=== PATIENT | female | born 1985 | race Caucasian/White ===

== ENCOUNTER 2017-08-20 05:02 | Emergency (ER) | payer MEDICAID ==
[~2017-08-20] VITALS: Ht 152.4 cm; Wt 65.0 kg
[~2017-08-20 05:02] MED LIST: IBUP800T23 PO
[2017-08-20 05:06] VITALS: BP 95/61; PULSE 84; RESP 16; TEMP 98.1; O2SAT 99
[2017-08-20 05:19] VITALS: BP 95/61; PULSE 84; RESP 16; TEMP 98.1; O2SAT 99
[2017-08-20] MEDS ORDERED: ORPHENADRINE INJ 60 MG/2 ML AMP IM ONE (05:45)
[2017-08-20] MEDS ORDERED: ACETAMINOPHEN/HYDROcodone 325 MG/5 MG TAB PO ONE (05:45)
[2017-08-20] MEDS ORDERED: IBUP-232 PO (05:46)
[2017-08-20] MEDS ORDERED: CYCL10TA PO (05:46)
--- NOTE | 2017-08-20 05:47 | PD ---
HPI Chief Complaint: Musculoskeletal Complaint Time Seen by Provider: 05:29 Travel History International Travel<30 days: No Contact w/Intl Traveler<30days: No Traveled to known affect area: No History of Present Illness HPI Patient is a 31-year-old female presents with gradual onset low back pain radiating down her left leg for the past 12-24 hours. Patient states she was doing some garden work yesterday did not feel any pops in her back nor sudden onset symptoms. She denies any saddle anesthesia denies any difficulty urinating. She adamantly denies any IV drug abuse. She states the pain is severe and she's never had this before. States she is otherwise healthy no medical problems. PFSH Past Medical History Diminished Hearing: No Immunizations Current: Yes Influenza Vaccination: No ?: Not LMP: 07/27/17 : 2 Para: 2 Past Surgical History Cholecystectomy: Yes Social History Alcohol Use: No Tobacco Use: Yes (1/2) Substance Use: No Allergies-Medications (Allergen,Severity, Reaction): Coded Allergies: No Known Allergies (Verified Adverse Reaction, Unknown, 08/20/17) Reported Meds & Prescriptions Reported Meds & Active Scripts Active Flexeril (Cyclobenzaprine HCl) 10 Mg Tab 10 Mg PO TID Ibuprofen 600 Mg Tab 600 Mg PO Q6H PRN Review of Systems Except as stated in HPI: all other systems reviewed are Neg Physical Exam Narrative GENERAL: Well-developed well-nourished, appears somewhat uncomfortable. SKIN: Focused skin assessment warm/dry. HEAD: Atraumatic. Normocephalic. EYES: Pupils equal and round. No scleral icterus. No injection or drainage. ENT: No nasal bleeding or discharge. Mucous membranes pink and moist. NECK: Trachea midline. No JVD. CARDIOVASCULAR: Regular rate and rhythm. No murmur appreciated. RESPIRATORY: No accessory muscle use. Clear to auscultation. Breath sounds equal bilaterally. GASTROINTESTINAL: Abdomen soft, non-tender, nondistended. Hepatic and splenic margins not palpable. MUSCULOSKELETAL: No midline CT or L-spine tenderness, negative straight leg raise bilaterally. [place] 5 strength in bilateral lower extremities, and relates with an even narrow based gait albeit with some antalgia. There is some tenderness over the myofascial blood in the left side which is her trigger point. NEUROLOGICAL: Awake and alert. No obvious cranial nerve deficits. Motor grossly within normal limits. Normal speech. PSYCHIATRIC: Appropriate mood and affect; insight and judgment normal. Data Data Last Documented VS Vital Signs Date Time Temp Pulse Resp B/P (MAP) Pulse Ox O2 Delivery O2 Flow Rate FiO2 08/20/17 06:09 78 18 109/59 (76) 99 08/20/17 05:19 98.1 Orders Orders Orphenadrine Inj (Norflex Inj) (08/20/17 05:45) Acetamin-Hydrocod 325-5 Mg ([place] 5-325 (08/20/17 05:45) Ed Discharge Order (08/20/17 05:47) [facility] Medical Decision Making Medical Screen Exam Complete: Yes Emergency Medical Condition: Yes Differential Diagnosis Muscle strain, sprain, slipped disc, degenerative disc disease, acute fracture highly unlikely, cauda equina syndrome is excluded clinically. Narrative Course Patient roomed in emergency department, she was given Norflex injection is feeling better, discussed symptomatic management follow-up with a primary care physician and return to ED criteria. She stable for discharge. Diagnosis Primary Impression: Sciatica of left side Patient Instructions: General Instructions, Sciatica (DC) Med/Other Pt SpecificInfo: Prescription(s) given Scripts Cyclobenzaprine (Flexeril) 10 Mg Tab 10 MG PO TID for Muscle Spasm, #20 TAB 0 Refills Prov: [place] Mckeon MD 08/20/17 Ibuprofen (Ibuprofen) 600 Mg Tab 600 MG PO Q6H Y for Pain/Inflammation, #30 TAB 0 Refills Prov: [place] Mckeon MD 08/20/17 Disposition: 01 DISCHARGE HOME Condition: Stable Trenton Mckeon MD Aug 20, 2017 05:47
[2017-08-20 06:09] VITALS: BP 109/59
[2017-08-20] MEDS ORDERED: MEDR4PAK PO (13:33)
== END 2017-08-20 06:14 | disposition home or self-care (01) ==
LOC: PHED 05:02
DX: M54.42 Lumbago with sciatica, left side (principal); Z72.0 Tobacco use
CPT/HCPCS: 96372; 99284; J2360

== ENCOUNTER 2017-08-20 12:41 | Emergency (ER) | payer MEDICAID ==
[~2017-08-20 12:41] MED LIST changes: +CYCL10TA PO; +IBUP-232 PO
[2017-08-20 12:45] VITALS: BP 101/63; PULSE 81; RESP 16; TEMP 98.5; O2SAT 98
--- NOTE | 2017-08-20 13:32 | PD ---
HPI Chief Complaint: Back/ Neck Pain or Injury Time Seen by Provider: 13:23 Travel History International Travel<30 days: No Contact w/Intl Traveler<30days: No Traveled to known affect area: No History of Present Illness HPI 22-year-old female presents to the department with low back pain since yesterday. Patient states that she was picking up limbs from the yard and doing general yard work and started developing pain about 6-7 PM last night patient states that the pain as excruciating and radiates down the left leg. Patient denies fever, chills, numbness or tingling, loss of bowel or bladder function, IV drug use. Patient went to [facility] today for the same complaint and was "given nothing". PFSH Past Medical History Diminished Hearing: No Immunizations Current: Yes ?: Unknown : 2 Para: 2 Past Surgical History Cholecystectomy: Yes Social History Alcohol Use: No Tobacco Use: Yes (1/2) Substance Use: No Allergies-Medications (Allergen,Severity, Reaction): Coded Allergies: No Known Allergies (Verified Adverse Reaction, Unknown, 08/20/17) Reported Meds & Prescriptions Reported Meds & Active Scripts Active Medrol Dosepak (Methylprednisolone) 4 Mg Dspk 4 Mg PO DIRECTED Per Pharmacist direction Flexeril (Cyclobenzaprine HCl) 10 Mg Tab 10 Mg PO TID Ibuprofen 600 Mg Tab 600 Mg PO Q6H PRN Review of Systems Except as stated in HPI: all other systems reviewed are Neg Physical Exam Narrative GENERAL: Well-developed well-nourished in mild distress SKIN: Focused skin assessment warm/dry. HEAD: Atraumatic. Normocephalic. NECK: Trachea midline. No JVD. CARDIOVASCULAR: Regular rate and rhythm. No murmur appreciated. RESPIRATORY: No accessory muscle use. Clear to auscultation. Breath sounds equal bilaterally. GASTROINTESTINAL: Abdomen soft, non-tender, nondistended. Hepatic and splenic margins not palpable. MUSCULOSKELETAL: No obvious deformities. No clubbing. No cyanosis. No edema. BACK: No CVA tenderness. No rash. No point tenderness on palpation of the spine. Mild paraspinous tenderness. Area of muscle spasms on the left lumbar paraspinous area NEUROLOGICAL: Awake and alert. No obvious cranial nerve deficits. Motor grossly within normal limits. Normal speech. Neurovascularly intact PSYCHIATRIC: Appropriate mood and affect; insight and judgment normal. Data Data Last Documented VS Vital Signs Date Time Temp Pulse Resp B/P (MAP) Pulse Ox O2 Delivery O2 Flow Rate FiO2 08/20/17 12:45 98.5 81 16 101/63 (76) 98 Orders Orders Methylprednisolone So Succ Inj (Solumedr (08/20/17 13:45) Ketorolac Inj (Toradol Inj) (08/20/17 13:45) Ed Discharge Order (08/20/17 13:37) [facility] Medical Decision Making Medical Screen Exam Complete: Yes Emergency Medical Condition: Yes Differential Diagnosis Acute lumbago versus muscle strain versus muscle sprain versus fracture Narrative Course 22-year-old female presents to the department with low back pain since yesterday. Patient states that she was picking up limbs from the yard and doing general yard work and started developing pain about 6-7 PM last night patient states that the pain as excruciating and radiates down the left leg. Patient denies fever, chills, numbness or tingling, loss of bowel or bladder function, IV drug use. Patient went to [facility] today for the same complaint and was "given nothing". Patient states she has never had back pain like this before. Vital signs stable Physical exam consistent with lumbar lumbago, muscle spasms After review of the chart patient received Flexeril and ibuprofen for her pain. I will introduce Medrol and prednisone for her pain. I spent an extended amount of time educating patient on the process and reason why she was having back pain. No red flag symptoms. Reassured patient and mother. Advised her to follow up with primary care within 2-3 days. Return to the ED for worsening symptoms. Diagnosis Primary Impression: Lumbago with sciatica, left side Qualified Codes: M54.42 - Lumbago with sciatica, left side Referrals: [facility] Additional Instructions: Take medication as prescribed this morning. Take Medrol Dosepak as prescribed. Perform light stretches of the lower back and legs, and alternate heat and ice packs. If you develop increased pain, weakness, fever, chills, or bowel or bladder issues, return to the ED for further treatment and evaluation. Follow up with your primary care physician in 2-3 days. Scripts Methylprednisolone Dosepak (Medrol Dosepak) 4 Mg Dspk 4 MG PO DIRECTED, #1 DSPK 0 Refills Per Pharmacist direction Prov: Vinh Vivar MD 08/20/17 Disposition: 01 DISCHARGE HOME Condition: Stable Jayla Osborne Aug 20, 2017 13:32
[2017-08-20] MEDS ORDERED: MEDR4PAK PO (13:33)
[2017-08-20] MEDS ORDERED: methylPREDNISolone SOD SUCC 125 MG/2 ML VIAL IV PUSH ONE (13:45)
[2017-08-20] MEDS ORDERED: KETOROLAC TROMETHAMINE 60 MG/2 ML (IM) VIAL IM ONE (13:45)
[2017-08-20] MEDS ORDERED: methylPREDNISolone SOD SUCC 125 MG/2 ML VIAL IM ONE (14:30)
== END 2017-08-20 14:47 | disposition home or self-care (01) ==
LOC: NEPK 12:41
DX: M54.42 Lumbago with sciatica, left side (principal); F17.200 Nicotine dependence, unspecified, uncomplicated
CPT/HCPCS: 96372; 99284; J1885; J2930